=== PATIENT | male | born 1960 | race African-American/Black ===

== ENCOUNTER 2016-11-24 23:56 | Emergency (ER) | payer MEDICARE, OTHER ==
[2016-11-25 01:44] LABS: BASOPHIL 0.5 % (0-2); EOSINOPHIL 1.9 % (0-5); HCT 38.8 % (42.0-52.0); HGB 13.8 g/dl (13.2-18.0); LYMPHOCYTE 30.4 % (15-48); MCH 29.7 pg (25.0-31.0); MCHC 35.6 g/dL (32.0-36.0); MCV 83.4 fL (78.0-100.0); MPV 9.8 fL (6.0-9.5); NEUTROPHIL 60.2 % (41-80); PLT 278 K/uL (150-400); RBC 4.65 M/uL (4.70-6.00); RDW 13.3 % (11.5-14.0); WBC 6.2 K/uL (4.0-10.5)
[2016-11-25 02:05] LABS: ALBUMIN 4.5 g/dL (3.5-5.0); BILIRUBIN - TOTAL 0.4 mg/dL (0.1-1.0); CREATININE 0.9 mg/dL (0.7-1.2); GLOBULIN (CALCULATION) 2.5 g/dL (2.2-4.2); POTASSIUM 3.3 mmol/L (3.5-5.1)
[2016-11-25 02:48] LABS: BILIRUBIN NEGATIVE (NEGATIVE); BLOOD NEGATIVE Ery/uL (NEGATIVE); CLARITY CLEAR (CLEAR); COLOR YELLOW (YELLOW); GLUCOSE (U) 1+ mg/dL (NORMAL); KETONE (U) TRACE mg/dL (NEGATIVE); LEUKOCYTES NEGATIVE Leu/uL (NEGATIVE); NITRITE NEGATIVE (NEGATIVE); PROTEIN NEGATIVE (NEGATIVE); SPECIFIC GRAVITY >=1.030 (1.001-1.030); UROBILINOGEN 0.2 mg/dL (0.2-1.0); pH 5.5 (5.0-9.0)
== END 2016-11-25 03:33 | disposition home or self-care (01) ==
LOC: FER 23:56
PROVIDERS: Emergency Medicine Emergency Medical Services
DX: E11.65 Type 2 diabetes mellitus with hyperglycemia (principal); R10.9 Unspecified abdominal pain; I10 Essential (primary) hypertension; E86.9 Volume depletion, unspecified; Z79.4 Long term (current) use of insulin; Z79.84 Long term (current) use of oral hypoglycemic drugs; Z90.49 Acquired absence of other specified parts of digestive tract; Z98.890 Other specified postprocedural states
CPT/HCPCS: 36415; 80053; 81003; 85025; J1170; J1885; J2270; J2405; J2800

== ENCOUNTER 2016-11-30 00:26 | Emergency (ER) | payer MEDICARE, OTHER ==
[2016-11-30 01:02] LABS: BILIRUBIN NEGATIVE (NEGATIVE); BLOOD NEGATIVE Ery/uL (NEGATIVE); CLARITY SLIGHTLY HAZY (CLEAR); COLOR YELLOW (YELLOW); GLUCOSE (U) 3+ mg/dL (NORMAL); KETONE (U) NEGATIVE (NEGATIVE); LEUKOCYTES NEGATIVE Leu/uL (NEGATIVE); NITRITE NEGATIVE (NEGATIVE); PROTEIN NEGATIVE (NEGATIVE)
[2016-11-30 01:09] LABS: AMPHETAMINES NEGATIVE (NEGATIVE); BARBITURATES NEGATIVE (NEGATIVE); BENZODIAZEPINES NEGATIVE (NEGATIVE); COCAINE NEGATIVE (NEGATIVE); MARIJUANA (THC) NEGATIVE (NEGATIVE); METHADONE NEGATIVE (NEGATIVE); TRICYCLIC ANTIDEPRESSANT NEGATIVE (NEGATIVE)
== END 2016-11-30 03:20 | disposition home or self-care (01) ==
LOC: FER 00:26
PROVIDERS: Internal Medicine
DX: M54.5 Low back pain (principal); E11.9 Type 2 diabetes mellitus without complications; I10 Essential (primary) hypertension; Z79.84 Long term (current) use of oral hypoglycemic drugs; Z98.890 Other specified postprocedural states
CPT/HCPCS: 80305; 81003; J1100; J1170; J2270

== ENCOUNTER 2020-09-28 20:29 | Emergency (ER) | payer OTHER ==
[~2020-09-28 20:29] MED LIST: 3IN1 COMMODE; BENTYL10 MG PO; COZAAR100 MG PO; CYCLOBENZAPRINE10 MG PO; DYAZIDE 37.5-21 EACH PO; FLEXERIL10 MG PO; FLOMAX 0.4 MG0.4 MG PO; GLUCOSE TAB PO; K-DUR20 MEQ PO; KLOR-CON M 1010 MEQ PO; LEVEMIR VI100 UNITS/ SC; LEVEMIR VI100 UNITS/ SQ; LIPITOR40 MG PO; LISINOPRIL 10MG10 MG PO; METFORMIN HCL500 M1 PO; METFORMIN HCL500 MG PO; MOTRIN600 MG PO; NEURONTIN400 MG PO; NORCO 5-325 TA1 EACH PO; NORVASC5 MG PO; NOVOLIN R100 UNIT/1 SC; REVATIO 20MG TA20 MG PO; TENORMIN50 MG PO; TRULICITY1.5 MG/0.5 SC; VOLTAREN **OUT50 MG PO; VOLTAREN **OUT75 MG PO; ZOFRAN4 MG PO
[2020-09-28 20:56] LABS: BILIRUBIN NEGATIVE (NEGATIVE); BLOOD NEGATIVE Ery/uL (NEGATIVE); CLARITY CLEAR (CLEAR); COLOR YELLOW (YELLOW); GLUCOSE (U) 3+ mg/dL (NORMAL); LEUKOCYTES NEGATIVE Leu/uL (NEGATIVE); NITRITE NEGATIVE (NEGATIVE); PROTEIN NEGATIVE (NEGATIVE); SPECIFIC GRAVITY 1.015 (1.001-1.030); UROBILINOGEN 0.2 mg/dL (0.2-1.0); pH 7.5 (5.0-9.0)
[2020-09-28 21:06] LABS: BASOPHIL 0.6 % (0-2); EOSINOPHIL 2.1 % (0-5); HCT 42.1 % (42.0-52.0); HGB 14.1 g/dl (13.2-18.0); LYMPHOCYTE 28.9 % (15-48); MCH 29.7 pg (25.0-31.0); MCHC 33.5 g/dL (32.0-36.0); MCV 88.8 fL (78.0-100.0); MONOCYTE 9.1 % (0-12); MPV 10.4 fL (6.0-9.5); NEUTROPHIL 58.7 % (41-80); NRBC 0; PLT 239 K/uL (150-400); RBC 4.74 M/uL (4.70-6.00); RDW 13.1 % (11.5-14.0); WBC 5.2 K/uL (4.0-10.5)
[2020-09-28 21:27] LABS: ALBUMIN 3.7 g/dL (3.4-5.0); BILIRUBIN - TOTAL 0.6 mg/dL (0.2-1.0); BUN/CREAT RATIO (CALC) 17.3 RATIO; CREATININE 0.75 mg/dL (0.67-1.17); GLOBULIN (CALCULATION) 3.6 g/dL; POTASSIUM 3.8 mmol/L (3.5-5.1); TOTAL PROTEIN 7.3 g/dL (6.4-8.2)
[2020-09-28] MEDS ORDERED: CYCLOBENZAPRINE10 MG PO (23:09)
[2020-09-28] MEDS ORDERED: DICLOFENAC SODI75 MG PO (23:09)
== END 2020-09-28 23:25 | disposition home or self-care (01) ==
LOC: FER 20:29
PROVIDERS: Emergency Medicine
DX: R10.9 Unspecified abdominal pain (principal); M54.9 Dorsalgia, unspecified; E11.9 Type 2 diabetes mellitus without complications; I10 Essential (primary) hypertension
CPT/HCPCS: 36415; 80053; 81003; 85025; J1170; J1885; J2270; J2405; J3360; J7030

== ENCOUNTER 2020-11-13 12:18 | Emergency (ER) | payer OTHER ==
[~2020-11-13 12:18] MED LIST changes: +DICLOFENAC SODI75 MG PO
== END 2020-11-13 14:55 | disposition home or self-care (01) ==
LOC: FER 12:18
DX: S50.01XA Contusion of right elbow, initial encounter (principal); E11.9 Type 2 diabetes mellitus without complications; I10 Essential (primary) hypertension; Z86.14 Personal history of Methicillin resistant Staphylococcus aureus infection; Z87.828 Personal history of other (healed) physical injury and trauma; Z79.82 Long term (current) use of aspirin; W00.0XXA Fall on same level due to ice and snow, initial encounter
CPT/HCPCS: 73080

== ENCOUNTER 2021-01-22 22:59 | Inpatient (IN) | payer OTHER, MEDICARE ==
[~2021-01-22] VITALS: Ht 190.5 cm; Wt 156.5 kg
[2021-01-23 00:43] LABS: BASOPHIL 0.4 % (0-2); HCT 36.9 % (42.0-52.0); HGB 12.8 g/dl (13.2-18.0); LYMPHOCYTE 33.6 % (15-48); MCH 30.7 pg (25.0-31.0); MCHC 34.7 g/dL (32.0-36.0); MCV 88.5 fL (78.0-100.0); MONOCYTE 8.1 % (0-12); MPV 12.3 fL (6.0-9.5); NEUTROPHIL 55.2 % (41-80); NRBC 0; PLT 188 K/uL (150-400); RBC 4.17 M/uL (4.70-6.00); RDW 13.9 % (11.5-14.0); WBC 4.6 K/uL (4.0-10.5)
[2021-01-23 01:02] LABS: ALBUMIN 3.7 g/dL (3.4-5.0); BILIRUBIN - TOTAL 0.7 mg/dL (0.2-1.0); CREATININE 0.89 mg/dL (0.67-1.17); POTASSIUM 3.6 mmol/L (3.5-5.1); TOTAL PROTEIN 6.7 g/dL (6.4-8.2)
[2021-01-23 01:29] LABS: CORONAVIRUS 2019 SARS-COV-2 NEGATIVE (NEGATIVE); INFLUENZA A NAA NEGATIVE (NEGATIVE)
[2021-01-23 03:40] LABS: BILIRUBIN NEGATIVE (NEGATIVE); BLOOD NEGATIVE Ery/uL (NEGATIVE); CLARITY CLEAR (CLEAR); COLOR YELLOW (YELLOW); GLUCOSE (U) 3+ mg/dL (NORMAL); LEUKOCYTES NEGATIVE Leu/uL (NEGATIVE); NITRITE NEGATIVE (NEGATIVE); PROTEIN NEGATIVE (NEGATIVE); SPECIFIC GRAVITY 1.015 (1.001-1.030); pH 6.5 (5.0-9.0)
[2021-01-23] MEDS ORDERED: HUMULIN R500 UNIT/2 IJ (05:52)
[2021-01-23] MEDS ORDERED: COZAAR100 MG PO (05:53)
[2021-01-23] MEDS ORDERED: UROCIT-K10 MEQ PO (05:53)
[2021-01-23] MEDS ORDERED: METFORMIN HCL500 MG PO (05:55)
[2021-01-23] MEDS ORDERED: TADALAFIL5 MG PO (05:57)
[2021-01-23] MEDS ORDERED: TENORMIN50 MG PO (05:58)
[2021-01-23] MEDS ORDERED: AMLODIPINE BESYL5 MG PO (05:59)
[2021-01-23] MEDS ORDERED: LIPITOR40 MG PO (06:00)
[2021-01-23] MEDS ORDERED: TRIAMTERENE-HC1 EAC1 PO (06:02)
--- NOTE | 2021-01-23 14:47 | NUR ---
01/23/21 Mr. Kline lives alone. However, he stays at his girlfriend's home at times. He is a and receives primary care at the [facility]. He uses a cane for ambulation. Will monitor for any discharge planning needs.
--- NOTE | 2021-01-23 18:04 | NUR ---
DR GILLIAM ORDERED A ANGIO CT CHEST TO RULE OUT PE FOR PT R/T SYMPTOMS OF SOA, BACK PAIN AND DDIMER 0.55. PT HAS #20G IN LH BUT IMAGING CALLED TO STATE THEY NEED A #20 IN AN ANTECUBITAL AREA. THIS RN ATTEMOPT X1 IN LAC AND WAS NOT SUCCESSFUL. RN CALLED KO CORTES RN TO ATTEMPT AGAIN. KO RAMSEY WAS UNSUCCESSFUL WELL AND OFFERED ONE MORE ATTEMPT BUT PT REFUSED STATING THAT HE WOULD "TRY AGAIN TOMORROW". WAS NOTIFIED AND ORDERED LOVENOX.
[2021-01-24 06:25] LABS: BASOPHIL 0.8 % (0-2); EOSINOPHIL 1.9 % (0-5); HCT 39.3 % (42.0-52.0); HGB 13.3 g/dl (13.2-18.0); LYMPHOCYTE 33.7 % (15-48); MCHC 33.8 g/dL (32.0-36.0); MCV 88.7 fL (78.0-100.0); MONOCYTE 8.4 % (0-12); MPV 10.7 fL (6.0-9.5); NRBC 0; PLT 206 K/uL (150-400); RBC 4.43 M/uL (4.70-6.00); RDW 13.8 % (11.5-14.0); WBC 5.9 K/uL (4.0-10.5)
[2021-01-24 07:00] LABS: ALBUMIN 3.8 g/dL (3.4-5.0); BILIRUBIN - TOTAL 1.1 mg/dL (0.2-1.0); BUN/CREAT RATIO (CALC) 17.7 RATIO; CREATININE 0.96 mg/dL (0.67-1.17); GLOBULIN (CALCULATION) 3.2 g/dL; MAGNESIUM 1.7 mg/dL (1.8-2.4); POTASSIUM 3.4 mmol/L (3.5-5.1)
--- NOTE | 2021-01-24 10:50 | NUR ---
PT 91% ON ROOM AIR WHEN WALK TEST PERFORMED
[2021-01-24] MEDS ORDERED: TENORMIN50 MG PO (15:20)
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
== END 2021-01-24 16:10 | disposition home or self-care (01) | DRG 189 ==
LOC: FER 22:59 → FTCU 01-23 04:38
PROVIDERS: Emergency Medicine Emergency Medical Services; Internal Medicine; Nurse Practitioner; ADMIT Allergy & Immunology Allergy
DX: J96.01 Acute respiratory failure with hypoxia (principal); Z68.41 Body mass index [BMI] 40.0-44.9, adult; J98.11 Atelectasis; E11.9 Type 2 diabetes mellitus without complications; E78.5 Hyperlipidemia, unspecified; E66.01 Morbid (severe) obesity due to excess calories; Z20.822 Contact with and (suspected) exposure to COVID-19; R22.43 Localized swelling, mass and lump, lower limb, bilateral; T46.1X5A Adverse effect of calcium-channel blockers, initial encounter; I11.0 Hypertensive heart disease with heart failure; I50.9 Heart failure, unspecified; G47.30 Sleep apnea, unspecified; G89.29 Other chronic pain; M54.5 Low back pain; G47.10 Hypersomnia, unspecified; E87.6 Hypokalemia; Z98.890 Other specified postprocedural states; Z90.49 Acquired absence of other specified parts of digestive tract; Z82.49 Family history of ischemic heart disease and other diseases of the circulatory system
CPT/HCPCS: 36415; 71045; 71250; 71275; 80048; 80053; 81003; 82962; 83036; 83605; 83735; 83880; 84145; 84484; 85025; 85379; 93005; 94667; 94668; 94760; J0696; J1170; J1650; J1940; J2405; J3475; Q9967; U0002

== ENCOUNTER 2021-02-07 16:50 | Emergency (ER) | payer OTHER, MEDICARE ==
[~2021-02-07 16:50] MED LIST changes: +AMLODIPINE BESYL5 MG PO; +HUMULIN R500 UNIT/2 IJ; +TADALAFIL5 MG PO; +TRIAMTERENE-HC1 EAC1 PO; +UROCIT-K10 MEQ PO
[2021-02-07 18:07] LABS: BASOPHIL 0.6 % (0-2); EOSINOPHIL 2.1 % (0-5); HCT 38.4 % (42.0-52.0); HGB 13.4 g/dl (13.2-18.0); LYMPHOCYTE 28.7 % (15-48); MCH 30.4 pg (25.0-31.0); MCHC 34.9 g/dL (32.0-36.0); MCV 87.1 fL (78.0-100.0); MONOCYTE 8.6 % (0-12); MPV 10.3 fL (6.0-9.5); NEUTROPHIL 59.8 % (41-80); NRBC 0; PLT 241 K/uL (150-400); RBC 4.41 M/uL (4.70-6.00); RDW 13.2 % (11.5-14.0); WBC 4.8 K/uL (4.0-10.5)
[2021-02-07 18:25] LABS: ALBUMIN 3.7 g/dL (3.4-5.0); BILIRUBIN - TOTAL 0.7 mg/dL (0.2-1.0); BUN/CREAT RATIO (CALC) 18.5 RATIO; CREATININE 0.81 mg/dL (0.67-1.17); GLOBULIN (CALCULATION) 3.5 g/dL; POTASSIUM 3.5 mmol/L (3.5-5.1); TOTAL PROTEIN 7.2 g/dL (6.4-8.2)
[2021-02-07 18:31] LABS: PRO-BNP 241 pg/mL (<125)
[2021-02-07 18:52] LABS: BILIRUBIN NEGATIVE (NEGATIVE); BLOOD NEGATIVE Ery/uL (NEGATIVE); CLARITY CLEAR (CLEAR); COLOR YELLOW (YELLOW); GLUCOSE (U) 2+ mg/dL (NORMAL); LEUKOCYTES NEGATIVE Leu/uL (NEGATIVE); NITRITE NEGATIVE (NEGATIVE); PROTEIN NEGATIVE (NEGATIVE); pH 5.5 (5.0-9.0)
== END 2021-02-07 21:00 | disposition home or self-care (01) ==
LOC: FER 16:50
PROVIDERS: Nurse Practitioner Family
DX: R60.0 Localized edema (principal); M54.5 Low back pain; E11.65 Type 2 diabetes mellitus with hyperglycemia; I10 Essential (primary) hypertension; E78.5 Hyperlipidemia, unspecified; Z79.899 Other long term (current) drug therapy
CPT/HCPCS: 36415; 71046; 72100; 80053; 81003; 83880; 84484; 85025; 93005; J1170; J1940; J2270; J2405

== ENCOUNTER 2021-02-11 22:06 | Emergency (ER) | payer OTHER, MEDICARE ==
[2021-02-11 22:58] LABS: BASOPHIL 0.6 % (0-2); EOSINOPHIL 1.7 % (0-5); HCT 37.8 % (42.0-52.0); HGB 13.4 g/dl (13.2-18.0); LYMPHOCYTE 23.9 % (15-48); MCH 30.6 pg (25.0-31.0); MCHC 35.4 g/dL (32.0-36.0); MCV 86.3 fL (78.0-100.0); MONOCYTE 9.2 % (0-12); MPV 10.7 fL (6.0-9.5); NRBC 0; PLT 178 K/uL (150-400); RBC 4.38 M/uL (4.70-6.00); RDW 13.3 % (11.5-14.0); WBC 5.2 K/uL (4.0-10.5)
[2021-02-11 23:19] LABS: ALBUMIN 3.6 g/dL (3.4-5.0); BILIRUBIN - TOTAL 0.8 mg/dL (0.2-1.0); BUN/CREAT RATIO (CALC) 20.4 RATIO; CREATININE 1.03 mg/dL (0.67-1.17); GLOBULIN (CALCULATION) 3.1 g/dL; POTASSIUM 3.8 mmol/L (3.5-5.1); TOTAL PROTEIN 6.7 g/dL (6.4-8.2)
[2021-02-12] MEDS ORDERED: LASIX20 MG PO (02:40)
[2021-02-12] MEDS ORDERED: UROCIT-K10 MEQ PO (02:40)
[2021-02-12] MEDS ORDERED: BACLOFEN 10MG T10 MG PO (02:40)
[2021-02-12] MEDS ORDERED: NORCO 5/3251 EACH PO (02:52)
== END 2021-02-12 03:20 | disposition home or self-care (01) ==
LOC: FER 22:06
PROVIDERS: Emergency Medicine Emergency Medical Services
DX: E87.70 Fluid overload, unspecified (principal); M54.5 Low back pain; I51.7 Cardiomegaly; I25.10 Atherosclerotic heart disease of native coronary artery without angina pectoris; E11.40 Type 2 diabetes mellitus with diabetic neuropathy, unspecified; E78.5 Hyperlipidemia, unspecified; Z90.49 Acquired absence of other specified parts of digestive tract; Z98.890 Other specified postprocedural states; Z79.4 Long term (current) use of insulin; Z79.899 Other long term (current) drug therapy
CPT/HCPCS: 36415; 71045; 80053; 83880; 84145; 84484; 85025; 93005; J1170; J1885; J1940; J2405; J2800; J7050

== ENCOUNTER 2021-02-13 11:12 | Day surgery (SDCO) | payer OTHER, MEDICARE ==
[~2021-02-13] VITALS: Ht 190.5 cm; Wt 159.1 kg
[~2021-02-13 11:12] MED LIST changes: +BACLOFEN 10MG T10 MG PO; +LASIX20 MG PO; +NORCO 5/3251 EACH PO
[2021-02-13 12:39] LABS: BASOPHIL 0.6 % (0-2); EOSINOPHIL 1.4 % (0-5); HCT 39.2 % (42.0-52.0); HGB 13.7 g/dl (13.2-18.0); LYMPHOCYTE 27.1 % (15-48); MCH 30.6 pg (25.0-31.0); MCHC 34.9 g/dL (32.0-36.0); MCV 87.7 fL (78.0-100.0); MONOCYTE 9.2 % (0-12); MPV 11.9 fL (6.0-9.5); NEUTROPHIL 61.1 % (41-80); NRBC 0; PLT 152 K/uL (150-400); RBC 4.47 M/uL (4.70-6.00); RDW 13.2 % (11.5-14.0)
[2021-02-13 12:43] LABS: ALBUMIN 3.8 g/dL (3.4-5.0); BUN/CREAT RATIO (CALC) 22.7 RATIO; CREATININE 1.1 mg/dL (0.67-1.17); GLOBULIN (CALCULATION) 3.3 g/dL; POTASSIUM 3.6 mmol/L (3.5-5.1); TOTAL PROTEIN 7.1 g/dL (6.4-8.2)
--- NOTE | 2021-02-13 23:06 | NUR ---
AT 2218 patient complained of mid-sternal chest "discomfort". He is warm and dry to touch, denies any nausea, c/o SOA with activity. monitoring manager showing NSR VR 72. No acute distress noted. Danyel High APRN notified of patient complaints, new orders rec'd.
--- NOTE | 2021-02-13 23:32 | NUR ---
Sitting on side of bed eating [employer] potato chips, continues to complain of chest discomfort and SOA at times, will continue to monitor closely for any changes.
[2021-02-14 04:43] LABS: HCT 38.7 % (42.0-52.0); HGB 13.3 g/dl (13.2-18.0); MCHC 34.4 g/dL (32.0-36.0); MCV 87.4 fL (78.0-100.0); MPV 11.1 fL (6.0-9.5); RBC 4.43 M/uL (4.70-6.00); RDW 13.2 % (11.5-14.0); WBC 5.3 K/uL (4.0-10.5)
[2021-02-14 05:01] LABS: BUN/CREAT RATIO (CALC) 27.3 RATIO; CREATININE 0.99 mg/dL (0.67-1.17); POTASSIUM 3.3 mmol/L (3.5-5.1)
[2021-02-14] MEDS ORDERED: LASIX40 MG PO (10:08)
[2021-02-14] MEDS ORDERED: HYDRALAZINE 10M10 MG PO (10:08)
--- NOTE | 2021-02-14 14:05 | NUR ---
02/14/21 Mr. Bailey was discharged home without any discharge planning needs.
== END 2021-02-14 11:20 | disposition home or self-care (01) ==
LOC: FER 11:12 → FTCU 13:53
PROVIDERS: Emergency Medicine; ADMIT Hospitalist
DX: I11.0 Hypertensive heart disease with heart failure (principal); I50.43 Acute on chronic combined systolic (congestive) and diastolic (congestive) heart failure; I16.0 Hypertensive urgency; K44.9 Diaphragmatic hernia without obstruction or gangrene; E78.5 Hyperlipidemia, unspecified; E88.81 Metabolic syndrome and other insulin resistance; J96.01 Acute respiratory failure with hypoxia; G89.29 Other chronic pain; M54.9 Dorsalgia, unspecified; E11.9 Type 2 diabetes mellitus without complications; E87.6 Hypokalemia; G62.9 Polyneuropathy, unspecified; E66.01 Morbid (severe) obesity due to excess calories; Z68.41 Body mass index [BMI] 40.0-44.9, adult; Z79.899 Other long term (current) drug therapy
CPT/HCPCS: 36415; 71045; 80048; 80053; 82962; 83735; 83880; 84484; 85025; 93005; G0378; J1650; J1940

== ENCOUNTER 2021-03-01 17:05 | Emergency (ER) | payer OTHER, MEDICARE ==
[~2021-03-01 17:05] MED LIST changes: +HYDRALAZINE 10M10 MG PO; +LASIX40 MG PO
[2021-03-01 18:38] LABS: BASOPHIL 0.5 % (0-2); EOSINOPHIL 1.4 % (0-5); HCT 40.9 % (42.0-52.0); MCH 30.4 pg (25.0-31.0); MCHC 34.2 g/dL (32.0-36.0); MCV 88.9 fL (78.0-100.0); MONOCYTE 9.9 % (0-12); MPV 10.6 fL (6.0-9.5); NEUTROPHIL 70.8 % (41-80); NRBC 0; PLT 245 K/uL (150-400); RDW 13.2 % (11.5-14.0); WBC 5.7 K/uL (4.0-10.5)
[2021-03-01 18:49] LABS: INR 1.06 (0.9-1.2); PROTHROMBIN TIME 13.1 SECONDS (11.4-13.6)
[2021-03-01 19:15] LABS: BILIRUBIN - TOTAL 0.8 mg/dL (0.2-1.0); CREATININE 1.49 mg/dL (0.67-1.17); GLOBULIN (CALCULATION) 3.7 g/dL; POTASSIUM 3.7 mmol/L (3.5-5.1); PRO-BNP 26 pg/mL (<125); TOTAL PROTEIN 7.7 g/dL (6.4-8.2)
[2021-03-01] MEDS ORDERED: PEPCID AC20 MG PO (20:00)
== END 2021-03-01 20:12 | disposition home or self-care (01) ==
LOC: FER 17:05
PROVIDERS: Emergency Medicine
DX: R06.00 Dyspnea, unspecified (principal); I11.0 Hypertensive heart disease with heart failure; I50.9 Heart failure, unspecified; E11.9 Type 2 diabetes mellitus without complications
CPT/HCPCS: 36415; 71045; 80053; 83880; 84484; 85025; 85610; 93005; J2405

== ENCOUNTER 2021-03-13 03:59 | Inpatient (IN) | payer OTHER, MEDICARE ==
[~2021-03-13] VITALS: Ht 190.5 cm; Wt 158.9 kg
[~2021-03-13 03:59] MED LIST changes: +PEPCID AC20 MG PO
[2021-03-13 04:39] LABS: BASOPHIL 0.6 % (0-2); EOSINOPHIL 2.3 % (0-5); HCT 37.6 % (42.0-52.0); HGB 12.9 g/dl (13.2-18.0); LYMPHOCYTE 33.1 % (15-48); MCH 29.9 pg (25.0-31.0); MCHC 34.3 g/dL (32.0-36.0); MCV 87.2 fL (78.0-100.0); MONOCYTE 9.7 % (0-12); MPV 10.5 fL (6.0-9.5); NEUTROPHIL 53.5 % (41-80); NRBC 0; PLT 184 K/uL (150-400); RBC 4.31 M/uL (4.70-6.00); WBC 4.8 K/uL (4.0-10.5)
[2021-03-13 04:51] LABS: ALBUMIN 3.6 g/dL (3.4-5.0); BILIRUBIN - TOTAL 0.7 mg/dL (0.2-1.0); CREATININE 0.89 mg/dL (0.67-1.17); GLOBULIN (CALCULATION) 3.8 g/dL; POTASSIUM 3.3 mmol/L (3.5-5.1); TOTAL PROTEIN 7.4 g/dL (6.4-8.2)
[2021-03-13 04:56] LABS: PRO-BNP 252 pg/mL (<125)
[2021-03-13] MEDS ORDERED: HYDRALAZINE25 MG PO (09:52)
[2021-03-13] MEDS ORDERED: HUMULIN 70100 UNIT/2 SC ×2 (09:54→09:55)
[2021-03-13] MEDS ORDERED: TADALAFIL20 M1 PO (09:59)
[2021-03-13] MEDS ORDERED: GABAPENTIN800 MG PO (10:01)
[2021-03-13] MEDS ORDERED: ASPIRIN EC81 MG PO (10:01)
[2021-03-13] MEDS ORDERED: VICODIN 10/3251 EACH PO (10:03)
[2021-03-13] MEDS ORDERED: COREG25 MG PO (10:04)
[2021-03-14 03:52] LABS: BASOPHIL 0.5 % (0-2); EOSINOPHIL 1.4 % (0-5); HCT 37.9 % (42.0-52.0); HGB 12.7 g/dl (13.2-18.0); LYMPHOCYTE 24.2 % (15-48); MCHC 33.5 g/dL (32.0-36.0); MCV 89.4 fL (78.0-100.0); MONOCYTE 8.6 % (0-12); MPV 10.4 fL (6.0-9.5); NEUTROPHIL 64.8 % (41-80); NRBC 0; PLT 194 K/uL (150-400); RBC 4.24 M/uL (4.70-6.00); RDW 13.4 % (11.5-14.0); WBC 5.7 K/uL (4.0-10.5)
[2021-03-14 04:09] LABS: BUN/CREAT RATIO (CALC) 16.4 RATIO; CREATININE 1.1 mg/dL (0.67-1.17); POTASSIUM 3.6 mmol/L (3.5-5.1)
--- NOTE | 2021-03-14 13:54 | NUR ---
03/14/21 Mr. Bailey lives alone in an aparmtent. He is independent in the home and community. He uses a cane at times. Mr. Bailey has PCP at [place]. Patient is using 02 while hospitalized and does not use at home. PLease advise if 02 is required at discharge.
--- NOTE | 2021-03-15 03:51 | NUR ---
0345 Dimitri HOLT APRN NOTIFIED OF MANUAL BP 180/48.
--- NOTE | 2021-03-15 03:51 | NUR ---
0340 Nara HOLT MOTIFIED OF BP 181/48 .
[2021-03-15 05:46] LABS: BASOPHIL 0.5 % (0-2); EOSINOPHIL 1.2 % (0-5); HCT 36.1 % (42.0-52.0); MCH 29.7 pg (25.0-31.0); MCHC 33.2 g/dL (32.0-36.0); MCV 89.4 fL (78.0-100.0); MONOCYTE 10.1 % (0-12); MPV 10.5 fL (6.0-9.5); NEUTROPHIL 61.9 % (41-80); NRBC 0; PLT 177 K/uL (150-400); RBC 4.04 M/uL (4.70-6.00); RDW 13.1 % (11.5-14.0); WBC 5.8 K/uL (4.0-10.5)
[2021-03-15 06:04] LABS: BUN/CREAT RATIO (CALC) 13.5 RATIO; CREATININE 0.96 mg/dL (0.67-1.17); POTASSIUM 3.2 mmol/L (3.5-5.1)
[2021-03-15] MEDS ORDERED: HCTZ12.5 MG PO (09:40)
[2021-03-15] MEDS ORDERED: ALDACTONE50 MG PO (09:40)
== END 2021-03-15 10:26 | disposition home or self-care (01) | DRG 305 ==
LOC: FER 03:59 → FTCU 08:24 → FMS 03-14 14:21
PROVIDERS: Emergency Medicine Emergency Medical Services; ADMIT Internal Medicine
DX: I16.1 Hypertensive emergency (principal); I50.22 Chronic systolic (congestive) heart failure; Z68.41 Body mass index [BMI] 40.0-44.9, adult; I11.0 Hypertensive heart disease with heart failure; K44.9 Diaphragmatic hernia without obstruction or gangrene; E88.81 Metabolic syndrome and other insulin resistance; Z20.822 Contact with and (suspected) exposure to COVID-19; E11.9 Type 2 diabetes mellitus without complications; E66.01 Morbid (severe) obesity due to excess calories; G47.30 Sleep apnea, unspecified; R60.0 Localized edema; E87.6 Hypokalemia; T50.1X5A Adverse effect of loop [high-ceiling] diuretics, initial encounter; E78.5 Hyperlipidemia, unspecified; I87.2 Venous insufficiency (chronic) (peripheral); G89.29 Other chronic pain; Z90.49 Acquired absence of other specified parts of digestive tract; Z98.890 Other specified postprocedural states; Z79.4 Long term (current) use of insulin; Z79.82 Long term (current) use of aspirin; Z79.899 Other long term (current) drug therapy
CPT/HCPCS: 36415; 71045; 80048; 80053; 82962; 83605; 83880; 84132; 84484; 85025; 87040; 87088; 93005; J0360; J1170; J1885; J2405; J7060; U0002

== ENCOUNTER 2021-03-20 02:09 | Emergency (ER) | payer MEDICARE, OTHER ==
[~2021-03-20 02:09] MED LIST changes: +ALDACTONE50 MG PO; +ASPIRIN EC81 MG PO; +COREG25 MG PO; +GABAPENTIN800 MG PO; +HCTZ12.5 MG PO; +HUMULIN 70100 UNIT/2 SC; +HYDRALAZINE25 MG PO; +TADALAFIL20 M1 PO; +VICODIN 10/3251 EACH PO
[2021-03-20 03:08] LABS: BASOPHIL 0.6 % (0-2); EOSINOPHIL 1.5 % (0-5); HCT 38.5 % (42.0-52.0); HGB 13.5 g/dl (13.2-18.0); MCH 30.6 pg (25.0-31.0); MCHC 35.1 g/dL (32.0-36.0); MCV 87.3 fL (78.0-100.0); MONOCYTE 7.7 % (0-12); MPV 11.1 fL (6.0-9.5); NEUTROPHIL 61.3 % (41-80); NRBC 0; PLT 252 K/uL (150-400); RBC 4.41 M/uL (4.70-6.00); RDW 13.1 % (11.5-14.0); WBC 6.5 K/uL (4.0-10.5)
[2021-03-20 03:12] LABS: ALBUMIN 3.9 g/dL (3.4-5.0); BILIRUBIN - TOTAL 0.7 mg/dL (0.2-1.0); BUN/CREAT RATIO (CALC) 21.8 RATIO; CREATININE 0.87 mg/dL (0.67-1.17); GLOBULIN (CALCULATION) 3.9 g/dL; MAGNESIUM 1.9 mg/dL (1.8-2.4); POTASSIUM 3.2 mmol/L (3.5-5.1); TOTAL PROTEIN 7.8 g/dL (6.4-8.2)
[2021-03-20 03:16] LABS: PRO-BNP 65 pg/mL (<125)
== END 2021-03-20 05:08 | disposition home or self-care (01) ==
LOC: FER 02:09
PROVIDERS: Emergency Medicine
DX: I10 Essential (primary) hypertension (principal); M54.5 Low back pain; R06.02 Shortness of breath; E11.9 Type 2 diabetes mellitus without complications; E78.5 Hyperlipidemia, unspecified
CPT/HCPCS: 36415; 71250; 72131; 80053; 83735; 83880; 84484; 85025; 93005; J1170; J2405; J3490

== ENCOUNTER 2021-04-21 14:53 | Emergency (ER) | payer MEDICARE, OTHER ==
[2021-04-21 15:58] LABS: BASOPHIL 0.4 % (0-2); EOSINOPHIL 0.9 % (0-5); HCT 41.7 % (42.0-52.0); HGB 14.6 g/dl (13.2-18.0); LYMPHOCYTE 22.6 % (15-48); MCH 30.2 pg (25.0-31.0); MCV 86.3 fL (78.0-100.0); MONOCYTE 8.7 % (0-12); MPV 10.4 fL (6.0-9.5); NEUTROPHIL 66.9 % (41-80); NRBC 0; PLT 265 K/uL (150-400); RBC 4.83 M/uL (4.70-6.00); RDW 13.5 % (11.5-14.0); WBC 7.6 K/uL (4.0-10.5)
[2021-04-21 16:32] LABS: INR 1.11 (0.9-1.2); PROTHROMBIN TIME 13.7 SECONDS (11.8-13.4)
[2021-04-21 16:33] LABS: PTT 33.1 SECONDS (24.4-34.7)
[2021-04-21 16:42] LABS: ALBUMIN 3.8 g/dL (3.4-5.0); BILIRUBIN - TOTAL 1.3 mg/dL (0.2-1.0); BUN/CREAT RATIO (CALC) 20.7 RATIO; CREATININE 0.92 mg/dL (0.67-1.17); GLOBULIN (CALCULATION) 3.3 g/dL; POTASSIUM 3.1 mmol/L (3.5-5.1); TOTAL PROTEIN 7.1 g/dL (6.4-8.2)
[2021-04-21 16:49] LABS: CKMB 2.8 ng/mL (0.0-3.6)
== END 2021-04-21 17:30 | disposition home or self-care (01) ==
LOC: FER 14:53
PROVIDERS: Emergency Medicine
DX: I11.0 Hypertensive heart disease with heart failure (principal); I50.30 Unspecified diastolic (congestive) heart failure; E11.9 Type 2 diabetes mellitus without complications
CPT/HCPCS: 36415; 71045; 80053; 82553; 83880; 84484; 85025; 85610; 85730

== ENCOUNTER 2021-10-28 08:14 | Emergency (ER) | payer MEDICARE, OTHER ==
[2021-10-28] MEDS ORDERED: KEFLEX250 MG PO (09:54)
== END 2021-10-28 10:05 | disposition home or self-care (01) ==
LOC: FER 08:14
DX: L03.115 Cellulitis of right lower limb (principal); E11.9 Type 2 diabetes mellitus without complications; I10 Essential (primary) hypertension; Z79.4 Long term (current) use of insulin; Z79.84 Long term (current) use of oral hypoglycemic drugs; Z79.82 Long term (current) use of aspirin; Z79.899 Other long term (current) drug therapy
CPT/HCPCS: 93971

== ENCOUNTER 2022-01-22 18:51 | Emergency (ER) | payer MEDICARE, OTHER ==
[~2022-01-22 18:51] MED LIST changes: +KEFLEX250 MG PO
[2022-01-22 20:11] LABS: BASOPHIL 0.3 % (0-2); EOSINOPHIL 1.6 % (0-5); HGB 14.9 g/dl (13.2-18.0); LYMPHOCYTE 30.7 % (15-48); MCHC 33.9 g/dL (32.0-36.0); MCV 88.7 fL (78.0-100.0); MONOCYTE 15.5 % (0-12); MPV 9.9 fL (6.0-9.5); NEUTROPHIL 51.6 % (41-80); NRBC 0; PLT 192 K/uL (150-400); RBC 4.96 M/uL (4.70-6.00); RDW 13.9 % (11.5-14.0); WBC 3.8 K/uL (4.0-10.5)
[2022-01-22 20:33] LABS: PROTHROMBIN TIME 12.6 SECONDS (11.8-13.4); PTT 31.6 SECONDS (24.4-34.7)
[2022-01-22 20:35] LABS: D-DIMER 0.41 ug/mLFEU (0.00-0.41)
[2022-01-22 20:42] LABS: LACTIC ACID 0.7 mmol/L (0.4-1.9)
[2022-01-22 20:58] LABS: BILIRUBIN NEGATIVE (NEGATIVE); BLOOD NEGATIVE Ery/uL (NEGATIVE); CLARITY CLEAR (CLEAR); COLOR YELLOW (YELLOW); GLUCOSE (U) 3+ mg/dL (NORMAL); LEUKOCYTES NEGATIVE Leu/uL (NEGATIVE); NITRITE NEGATIVE (NEGATIVE); PROTEIN NEGATIVE (NEGATIVE)
[2022-01-22 21:12] LABS: BUN/CREAT RATIO (CALC) 18.5 RATIO; CREATININE 0.81 mg/dL (0.67-1.17); POTASSIUM 3.7 mmol/L (3.5-5.1)
[2022-01-22] MEDS ORDERED: NORVASC 10MG TA10 MG PO (23:10)
== END 2022-01-23 00:21 | disposition home or self-care (01) ==
LOC: FER 18:51
PROVIDERS: Nurse Practitioner Family
DX: R07.89 Other chest pain (principal); R10.9 Unspecified abdominal pain; I11.0 Hypertensive heart disease with heart failure; I50.9 Heart failure, unspecified; E11.9 Type 2 diabetes mellitus without complications; Z79.82 Long term (current) use of aspirin; Z79.84 Long term (current) use of oral hypoglycemic drugs; Z79.899 Other long term (current) drug therapy
CPT/HCPCS: 36415; 70450; 71045; 71250; 80048; 81003; 83036; 83605; 83880; 84145; 84484; 85025; 85379; 85610; 85730; 87040; 93005; J1170; J2405; J3490

== ENCOUNTER 2022-02-05 20:36 | Emergency (ER) | payer MEDICARE, OTHER ==
[~2022-02-05 20:36] MED LIST changes: +NORVASC 10MG TA10 MG PO
[2022-02-05 21:05] LABS: BASOPHIL 0.5 % (0-2); EOSINOPHIL 2.4 % (0-5); HCT 42.8 % (42.0-52.0); HGB 14.3 g/dl (13.2-18.0); LYMPHOCYTE 33.1 % (15-48); MCH 29.5 pg (25.0-31.0); MCHC 33.4 g/dL (32.0-36.0); MCV 88.4 fL (78.0-100.0); MONOCYTE 12.1 % (0-12); MPV 9.9 fL (6.0-9.5); NEUTROPHIL 51.4 % (41-80); NRBC 0; PLT 264 K/uL (150-400); RBC 4.84 M/uL (4.70-6.00); RDW 13.4 % (11.5-14.0); WBC 4.2 K/uL (4.0-10.5)
[2022-02-05 21:31] LABS: ALBUMIN 4.1 g/dL (3.4-5.0); BILIRUBIN - TOTAL 0.8 mg/dL (0.2-1.0); BUN/CREAT RATIO (CALC) 15.2 RATIO; CREATININE 0.79 mg/dL (0.67-1.17); GLOBULIN (CALCULATION) 3.3 g/dL; MAGNESIUM 2.1 mg/dL (1.8-2.4); POTASSIUM 3.9 mmol/L (3.5-5.1); TOTAL PROTEIN 7.4 g/dL (6.4-8.2)
[2022-02-06 00:48] LABS: INR 1.02 (0.9-1.2); PROTHROMBIN TIME 12.8 SECONDS (11.8-13.4); PTT 31.9 SECONDS (24.4-34.7)
[2022-02-06] MEDS ORDERED: CYCLOBENZAPRINE10 MG PO (01:48)
[2022-02-06] MEDS ORDERED: BUMEX1 MG PO (01:48)
== END 2022-02-06 02:25 | disposition home or self-care (01) ==
LOC: FER 20:36
PROVIDERS: Internal Medicine
DX: R07.89 Other chest pain (principal); I11.0 Hypertensive heart disease with heart failure; I50.9 Heart failure, unspecified; M62.838 Other muscle spasm; R06.02 Shortness of breath; E11.9 Type 2 diabetes mellitus without complications; Z79.4 Long term (current) use of insulin
CPT/HCPCS: 36415; 71275; 80053; 83735; 83880; 84145; 84484; 85025; 85610; 85730; 93005; J1170; J2060; J2405; J3010

== ENCOUNTER 2022-04-09 05:43 | Emergency (ER) | payer MEDICARE, OTHER ==
[~2022-04-09 05:43] MED LIST changes: +BUMEX1 MG PO
[2022-04-09 06:46] LABS: BASOPHIL 0.5 % (0-2); EOSINOPHIL 1.5 % (0-5); HCT 43.4 % (42.0-52.0); HGB 15.3 g/dl (13.2-18.0); LYMPHOCYTE 27.4 % (15-48); MCH 30.8 pg (25.0-31.0); MCHC 35.3 g/dL (32.0-36.0); MCV 87.5 fL (78.0-100.0); MONOCYTE 7.7 % (0-12); MPV 10.8 fL (6.0-9.5); NEUTROPHIL 62.4 % (41-80); NRBC 0; PLT 243 K/uL (150-400); RBC 4.96 M/uL (4.70-6.00); RDW 13.2 % (11.5-14.0); WBC 5.8 K/uL (4.0-10.5)
[2022-04-09 07:11] LABS: ALBUMIN 3.8 g/dL (3.4-5.0); BILIRUBIN - TOTAL 0.7 mg/dL (0.2-1.0); BUN/CREAT RATIO (CALC) 13.2 RATIO; CREATININE 0.68 mg/dL (0.67-1.17); GLOBULIN (CALCULATION) 3.4 g/dL; POTASSIUM 3.4 mmol/L (3.5-5.1); TOTAL PROTEIN 7.2 g/dL (6.4-8.2)
[2022-04-09 08:33] LABS: BILIRUBIN NEGATIVE (NEGATIVE); BLOOD NEGATIVE Ery/uL (NEGATIVE); CLARITY CLEAR (CLEAR); COLOR YELLOW (YELLOW); GLUCOSE (U) 3+ mg/dL (NORMAL); LEUKOCYTES NEGATIVE Leu/uL (NEGATIVE); NITRITE NEGATIVE (NEGATIVE); PROTEIN NEGATIVE (NEGATIVE); UROBILINOGEN 0.2 mg/dL (0.2-1.0)
== END 2022-04-09 09:52 | disposition home or self-care (01) ==
LOC: FER 05:43
PROVIDERS: Emergency Medicine
DX: G45.9 Transient cerebral ischemic attack, unspecified (principal); M54.41 Lumbago with sciatica, right side; I10 Essential (primary) hypertension; E11.9 Type 2 diabetes mellitus without complications; Z79.4 Long term (current) use of insulin; Z79.84 Long term (current) use of oral hypoglycemic drugs; Z79.899 Other long term (current) drug therapy
CPT/HCPCS: 36415; 70450; 70544; 70551; 71045; 80053; 81003; 84484; 85025; 93005; J0780; J1170; J1885; J7030

== ENCOUNTER → 2022-04-10 | Emergency (ER) | payer MEDICARE, OTHER | END | disposition home or self-care (01) | LOC: FER 14:50 | DX: Z53.21 Procedure and treatment not carried out due to patient leaving prior to being seen by health care provider (principal) ==

== ENCOUNTER 2022-04-14 18:12 | Emergency (ER) | payer MEDICARE, OTHER ==
[2022-04-14] MEDS ORDERED: HYDRALAZINE25 MG PO (21:02)
== END 2022-04-14 21:28 | disposition home or self-care (01) ==
LOC: FER 18:12
DX: I11.0 Hypertensive heart disease with heart failure (principal); I50.9 Heart failure, unspecified; M54.41 Lumbago with sciatica, right side; E11.9 Type 2 diabetes mellitus without complications; Z79.84 Long term (current) use of oral hypoglycemic drugs; Z79.899 Other long term (current) drug therapy
CPT/HCPCS: 96372; J1170; J1885; J2930

== ENCOUNTER 2022-05-09 01:32 | Emergency (ER) | payer OTHER ==
[2022-05-09 02:07] LABS: BASOPHIL 0.6 % (0-2); EOSINOPHIL 1.9 % (0-5); HCT 41.3 % (42.0-52.0); HGB 14.7 g/dl (13.2-18.0); MCHC 35.6 g/dL (32.0-36.0); MCV 89.8 fL (78.0-100.0); MONOCYTE 11.2 % (0-12); MPV 10.2 fL (6.0-9.5); NEUTROPHIL 51.9 % (41-80); NRBC 0; PLT 243 K/uL (150-400); RDW 13.2 % (11.5-14.0); WBC 4.7 K/uL (4.0-10.5)
[2022-05-09 02:36] LABS: CORONAVIRUS 2019 SARS-COV-2 NEGATIVE (NEGATIVE); INFLUENZA A NAA NEGATIVE (NEGATIVE)
[2022-05-09 02:56] LABS: ALBUMIN 3.7 g/dL (3.4-5.0); ALKALINE PHOSHATASE 100 U/L (46-116); BILIRUBIN - TOTAL 0.8 mg/dL (0.2-1.0); BUN 11 mg/dL (7-18); BUN/CREAT RATIO (CALC) 15.9 RATIO; CHLORIDE 101 mmol/L (98-107); CO2 (BICARBONATE) 30 mmol/L (21-32); CREATININE 0.69 mg/dL (0.67-1.17); GLOBULIN (CALCULATION) 3.2 g/dL; GLUCOSE 229 mg/dL (74-106); POTASSIUM 3.9 mmol/L (3.5-5.1); TOTAL PROTEIN 6.9 g/dL (6.4-8.2)
== END 2022-05-09 05:47 | disposition home or self-care (01) ==
LOC: FER 01:32
PROVIDERS: Emergency Medicine
DX: R07.89 Other chest pain (principal); R22.43 Localized swelling, mass and lump, lower limb, bilateral; I11.0 Hypertensive heart disease with heart failure; I50.9 Heart failure, unspecified; E11.9 Type 2 diabetes mellitus without complications; Z20.822 Contact with and (suspected) exposure to COVID-19
CPT/HCPCS: 36415; 71045; 80053; 83880; 84484; 85025; 93005; J1940; J2270; U0002

== ENCOUNTER → 2022-06-04 | Day surgery (SDC) | payer OTHER ==
[~2022-06-04] VITALS: Ht 190.5 cm; Wt 153.3 kg
[~2022-06-04] MED LIST changes: +DIAZEPAM5 MG PO
== END | disposition home or self-care (01) ==
LOC: FAS 07:23
DX: Z12.11 Encounter for screening for malignant neoplasm of colon (principal); Z86.010 Personal history of colon polyps; E11.9 Type 2 diabetes mellitus without complications; Z79.4 Long term (current) use of insulin; G89.29 Other chronic pain; M25.511 Pain in right shoulder; M25.512 Pain in left shoulder; Z79.891 Long term (current) use of opiate analgesic; Z90.49 Acquired absence of other specified parts of digestive tract; Z79.899 Other long term (current) drug therapy
CPT/HCPCS: J2704; J7120